=== PATIENT | male | born 1955 | race Caucasian/White ===

== ENCOUNTER 2016-12-08 10:52 | Day surgery (SDC) | payer OTHER ==
[~2016-12-08] VITALS: Ht 188 cm; Wt 117.9 kg
[~2016-12-08 10:52] MED LIST: GABAPENTIN300 MG PO; LISINOPRIL-HCT1 EACH PO; LYRICA150 MG PO; NICODERM CQ1 EAC2 TD; NORCO 5/3251 TABLET PO; PROTONIX40 MG PO; SIMVASTATIN40 MG PO; ULTRAM50 MG PO; WELLBUTRIN XL300 MG PO
[2016-12-08 11:25] LABS: HEMATOCRIT 41.5 % (38.0-50.0); MCH 32.3 PG (29.0-34.0); MCHC 34.7 G/DL (30.0-36.0); MEAN PLAT.VOLUME 9.6 uM^3 (9.0-12.4); PLATELET COUNT 188 K/uL (156-360); RBC DIS.WIDTH-CV 11.8 % (11.8-14.6); RBC DIS.WIDTH-SD 40.4 % (39-53); RED BLOOD COUNT 4.46 M/uL (4.00-5.50); WHITE BLOOD COUNT 9.2 K/uL (4.1-10.2)
[2016-12-08 11:34] VITALS: BP 136/81
[2016-12-08 12:00] LABS: ANION GAP 8 MEQ/L (2-14); CHLORIDE 102 MEQ/L (99-109); POTASSIUM 4.6 MEQ/L (3.7-5.4); SAMPLE HEMOLYSIS CHECK 1; SAMPLE ICTERIC CHECK 0; SAMPLE LIPEMIA CHECK 0; SODIUM 134 MEQ/L (136-147)
[2016-12-08 12:05] LABS: GFR ESTIMATE (CALCULATED) > 59 mL/min/; GLUCOSE 122 mg/dL (70-99); UREA NITROGEN (BUN) 12 mg/dL (9-23)
[2016-12-08 18:18] VITALS: BP 119/67
[2016-12-08 19:35] VITALS: BP 138/75
== END 2016-12-08 19:38 | disposition home or self-care (01) ==
LOC: SDC 10:52
PROVIDERS: Neurological Surgery
PROC: 01NB0ZZ Release Lumbar Nerve, Open Approach (ICD-10-PCS; principal; 2016-12-08)
DX: M48.062 Spinal stenosis, lumbar region with neurogenic claudication (principal); M54.16 Radiculopathy, lumbar region; I10 Essential (primary) hypertension; E78.00 Pure hypercholesterolemia, unspecified; F17.210 Nicotine dependence, cigarettes, uncomplicated
CPT/HCPCS: 72020; 72100; 76000; 80048; 85027; 93005; J0131; J0330; J0690; J1100; J1170; J2250; J2405; J2710; J3010; S0020

== ENCOUNTER 2017-06-14 22:10 | Inpatient (IN) | payer OTHER ==
[~2017-06-14] VITALS: Ht 188 cm; Wt 117.9 kg
[~2017-06-14 22:10] MED LIST changes: +FLONASE16 G1 BOTH NARES; +LIORESAL10 MG PO; -LYRICA150 MG PO; +LYRICA300 MG PO; +MOTRIN800 MG PO; +VIAGRA50 MG PO; +WELLBUTRIN XL150 MG PO; -WELLBUTRIN XL300 MG PO
[2017-06-15 06:59] LABS: HEMATOCRIT 34.9 % (38.0-50.0); MCH 31.4 PG (29.0-34.0); MCHC 34.4 G/DL (30.0-36.0); MCV 91.4 FL (86-99); PLATELET COUNT 191 K/uL (156-360); RBC DIS.WIDTH-CV 12.2 % (11.8-14.6); RBC DIS.WIDTH-SD 40.7 % (39-53); RED BLOOD COUNT 3.82 M/uL (4.00-5.50); WHITE BLOOD COUNT 8.7 K/uL (4.1-10.2)
[2017-06-15 07:09] VITALS: BP 144/80
[2017-06-15 07:12] LABS: CHLORIDE 102 mEq/L (99-109); POTASSIUM 4.1 mEq/L (3.7-5.4); SODIUM 140 mEq/L (136-147)
[2017-06-15 07:13] LABS: GLUCOSE 139 mg/dL (70-99)
[2017-06-15 07:17] LABS: CREATININE 0.8 mg/dL (0.6-1.3); GFR ESTIMATE (CALCULATED) > 59 mL/min/ (58.99-99999)
[2017-06-15 07:18] LABS: UREA NITROGEN (BUN) 15 mg/dL (9-23)
[2017-06-15 07:57] LABS: APPEARANCE CLEAR ((CLEAR)); BILIRUBIN NEGATIVE; BLOOD NEGATIVE; COLOR YELLOW ((YELLOW)); GLUCOSE (STRIP) NEGATIVE; KETONES NEGATIVE; LEUKOCYTES MODERATE; NITRITE NEGATIVE; PROTEIN (STRIP) NEGATIVE; SPECIFIC GRAVITY 1.013 (1.000-1.030); UROBILINOGEN 0.2 MG/DL (0.2-1.0)
[2017-06-15 08:04] LABS: BACTERIA NONE SEEN /HPF; EPITHELIAL CELLS RARE /HPF; MUCUS NONE SEEN /LPF; RED BLOOD CELLS 0-5 /HPF (0-5); WHITE BLOOD CELLS 0-5 /HPF (0-5)
[2017-06-15 15:53] VITALS: BP 139/62
[2017-06-15] MEDS ORDERED: HYDROCODON-ACE1 EAC7 PO (16:01)
[2017-06-15] MEDS ORDERED: BACLOFEN10 MG PO (16:35)
[2017-06-15 19:47] VITALS: BP 127/67
== END 2017-06-15 20:50 | disposition home or self-care (01) | DRG 29 ==
LOC: ENRESERV 22:10 → 2SOUTH 06-15 06:27 → ENRESERV 06-15 13:52 → 2SOUTH 06-15 14:21 → 3EAST 06-15 15:07
PROVIDERS: Neurological Surgery
DX: M54.12 Radiculopathy, cervical region (principal); M47.812 Spondylosis without myelopathy or radiculopathy, cervical region; M48.02 Spinal stenosis, cervical region; M96.0 Pseudarthrosis after fusion or arthrodesis; I10 Essential (primary) hypertension; E78.5 Hyperlipidemia, unspecified; N40.0 Benign prostatic hyperplasia without lower urinary tract symptoms; K21.9 Gastro-esophageal reflux disease without esophagitis; E78.00 Pure hypercholesterolemia, unspecified; F17.210 Nicotine dependence, cigarettes, uncomplicated; Z98.1 Arthrodesis status
CPT/HCPCS: 72020; 72125; 76000; 80048; 81003; 85027; 93005; J0131; J0330; J0690; J1100; J1170; J2405; J2710; J3010; J3370; J3480; J7643; S0020